=== PATIENT | female | born 2005 | race Two or more races ===

== ENCOUNTER 2023-08-29 19:28 | Emergency (ER) | payer BC, OTHER ==
[~2023-08-29] VITALS: Ht 157.5 cm; Wt 58.2 kg
[2023-08-29 19:40] VITALS: BP 149/80; PULSE 77; RESP 20; O2SAT 100
[2023-08-29] MEDS ORDERED: AMOX875T3 PO (20:04)
[2023-08-29] MEDS ORDERED: IBUP-1454 PO (20:04)
== END 2023-08-29 22:36 | disposition left against medical advice (07) ==
LOC: ER 19:28
DX: G56.22 Lesion of ulnar nerve, left upper limb (principal); J02.9 Acute pharyngitis, unspecified